=== PATIENT | male | born 1970 | race Caucasian/White ===

== ENCOUNTER 2017-03-25 06:45 | Inpatient (IN) | payer BC ==
[2017-03-24 11:04] VITALS: BMI 44.4
[2017-03-25] MEDS ORDERED: MIDAZOLAM HCL 2 MG/2 ML SINGLE DOSE VIAL ONE (07:43)
[2017-03-25 07:44] LABS: URINE APPEARANCE CLEAR; URINE BILIRUBIN NEGATIVE (NEGATIVE); URINE BLOOD 1+ (NEGATIVE); URINE COLOR LT. YELLOW; URINE GLUCOSE (UA) NEGATIVE (NEGATIVE); URINE KETONE NEGATIVE (NEGATIVE); URINE LEUK ESTERASE NEGATIVE (NEGATIVE); URINE NITRITE NEGATIVE (NEGATIVE); URINE PROTEIN NEGATIVE (NEGATIVE); URINE UROBILINOGEN 0.2 mg/dL (0.2-1.0)
[2017-03-25] MEDS ORDERED: PROPOFOL 20 ML ONE ×2 (07:44)
[2017-03-25] MEDS ORDERED: ROCURONIUM BROMIDE 50 MG/5 ML VIAL ONE (07:44)
[2017-03-25] MEDS ORDERED: SUCCINYLCHOLINE CHLORIDE 200 MG/10 ML VIAL ONE (07:44)
[2017-03-25] MEDS ORDERED: BUPIVACAINE HCL/PF 0.5% (5MG/ML) 10 ML VIAL ONE (08:23)
[2017-03-25] MEDS ORDERED: ceFAZolin SODIUM 1 GM VIAL IVPB ONE (08:35)
[2017-03-25] MEDS ORDERED: LIDOCAINE HCL 2% JELLY (5 ML/TUBE) ONE (08:41)
[2017-03-25] MEDS ORDERED: LIDOCAINE HCL/PF 2% SDV 5ML VIAL ONE (08:41)
[2017-03-25] MEDS ORDERED: ceFAZolin SODIUM 1 GM VIAL ONE (08:41)
[2017-03-25] MEDS ORDERED: BUPIVACAINE HCL/PF 0.5% (5MG/ML) 10 ML VIAL IJ ONE ×2 (09:25)
[2017-03-25] MEDS ORDERED: DEXAMETHASONE SOD PHOSPHATE 4 MG/1 ML VIAL ONE (09:48)
[2017-03-25] MEDS ORDERED: NEOSTIGMINE METHYLSULFATE 0.5 MG/ML - 10 ML MDV ONE (09:48)
[2017-03-25] MEDS ORDERED: KETOROLAC TROMETHAMINE 30 MG/1 ML VIAL ONE (09:48)
[2017-03-25] MEDS ORDERED: ONDANSETRON 4 MG/2 ML VIAL ONE (09:48)
[2017-03-25] MEDS ORDERED: ONDANSETRON 4 MG/2 ML VIAL IVPB PRN (10:19)
[2017-03-25] MEDS ORDERED: LACTATED RINGERS SOLUTION 1,000 ML IV SCH (10:45)
[2017-03-25] MEDS: METOCLOPRAMIDE HCL INJECTION 10 MG/2 ML VIAL IVPB SCH ×3 (11:15→22:37)
[2017-03-25 11:26] LABS: MCH 28.1 pg (25.7-33.7); MCHC 34.4 g/dl (32.0-35.9); MEAN CELL VOLUME 81.8 fl (80-96); MEAN PLT VOLUME 8.8 fl (7.5-11.1); PLATELET COUNT 261 K/MM3 (134-434); WHITE BLOOD COUNT 7.7 K/mm3 (4.0-10.0)
[2017-03-25 11:30] LABS: ALBUMIN 3.5 g/dl (3.4-5.0); ALK PHOS 44 U/L (45-117); ANION GAP 5 (8-16); BILIRUBIN,TOTAL 0.3 mg/dL (0.2-1.0); CALCIUM 8.5 mg/dL (8.5-10.1); CO2 28 mmol/L (21-32); GLUCOSE,RANDOM 95 mg/dL (74-106); SGOT/AST 45 U/L (15-37); SGPT/ALT 72 U/L (12-78); TOT PROT 7.1 g/dl (6.4-8.2)
[2017-03-25] MEDS: SODIUM CHLORIDE 1,000 ML IV SCH ×2 (13:00→21:04)
--- NOTE | 2017-03-25 14:22 | OP ---
DATE OF OPERATION: 03/25/2017 PREOPERATIVE DIAGNOSES: 1. Morbid obesity. 2. Lipoma of right abdominal wall. POSTOPERATIVE DIAGNOSES: 1. Morbid obesity. 2. Lipoma of right abdominal wall. PROCEDURE PERFORMED: 1. Laparoscopic vertical sleeve gastrectomy. 2. Excision of lipoma, right abdominal wall. 3. Diagnostic laparoscopy. OPERATING SURGEON: Ryan Hagen MD CONTROLLER INSTRUCTOR: Ousmane Andersen MD ANESTHESIA: General. EXPECTED BLOOD LOSS: 50 mL DISPOSITION: Patient transferred to recovery room in stable condition. OPERATIVE PROCEDURE: The patient was brought into the operating room and placed on the OR table in the supine position. All precautions were taken initially including padding for the back and the feet, and Venodyne boots were placed on both lower extremities. At that point, the abdomen was prepped and draped in the usual manner. A Veress needle was placed in the left upper quadrant, and a pneumoperitoneum was established. A number 12 bladeless trocar was placed in the left upper quadrant. Through that trocar, laparoscopic camera was placed. Under direct vision, a number 15 bladeless trocar was placed in the midline in a supraumbilical position, followed by a number 5 bladeless trocar in the right upper quadrant and number 5 bladeless trocar below the left costal margin. A Chuck liver retractor was then placed in the epigastrium to retract the left lobe of the liver. The patient was then placed in a 20-degree reverse Trendelenburg position, and the distal stomach was noted. The pylorus was found on distal stomach, and 6 cm would make it proximally from there. Here, on the greater curvature of the stomach, the operating surgeon lifted the stomach toward the anterior abdominal wall as the dental assistant surgeon retracted the gastrocolic ligament inferiorly. The LigaSure device was used to dissect the gastrocolic ligament off the greater curve of stomach. This continued in a superior vertical direction, continuing to dissect the short gastric vessels off the greater curve until the final short gastric vessel between the superior poles of the spleen and the proximal fundus was divided. At this juncture, Anesthesia had a number 40 bougie and advanced it from the upper stomach toward the distal stomach. With the bougie held along the lesser curve, a series of em was performed with the first two being black load em, 6 cm in length along the bougie. This was followed by a series of purple-load staple also along the bougie until the final stapler was fired in the left upper quadrant, and the greater curve was now completely detached from the lesser curve. It should be noted that prior to firing each staple, both the anterior and posterior garvey were checked of the remaining lesser curvature to make sure that they were equal and in the area of the esophagogastric junction, approximately 1 cm of serosa remained on the anterior and posterior surfaces. At this juncture, saline was placed around the staple line. Anesthesia inserted air into the bougie which showed the entire stomach distended to the pylorus. No obstruction and no leaks were noted. At this point, the resected greater curve was removed with a number 15 trocar site and sent off to field as a specimen to Pathology. Under direct vision, the number 15 trocar site was closed in the upper midline to prevent internal hernia and to prevent bleeding. Under direct vision, all trocars were removed, and pneumoperitoneum was released. In the right upper quadrant, from the midline over laterally just below the right costal margin, there was a large subcutaneous fatty tissue significant for a lipoma. This measured approximately 10 cm in transverse diameter and 6 cm vertically. An incision was made extending from the midline laterally below the right costal margin. The incision was carried down through the skin and reaching the subcutaneous tissue. Once the lipoma was noted, initially dissection continued on the superior side where the dissection continued down to the fascia of the right rectus muscle, and here, the lipoma was lifted off the right rectus muscle. This was then extended to both the lateral and medial surfaces until finally the lipoma was lifted up, remaining by a stalk. It was dissected free of all attachments, and the lipoma was sent off the field as a specimen. At this point, all trocar sites received 0.25% Marcaine. The lipoma was closed with 3-0 Vicryl in a subcutaneous fashion, and then, all trocar sites and incisions were closed with 4-0 Biosyn in subcuticular fashion. Dressings were applied. The patient awoke from anesthesia and transferred out of the operating room to the recovery room in stable condition. Lolis [id number]
[2017-03-25] MEDS: ENOXAPARIN NA (PORCINE) 40 MG/0.4 ML DISP.SYRIN SQ SCH (21:03)
[2017-03-25] MEDS: FAMOTIDINE 20 MG/50 ML IVPB 50 ML IVPB SCH (21:03)
[2017-03-25] MEDS: HYDROmorphone HCL CARPU-JECT 1 MG/1 ML DISP.SYRIN IVPB PRN (21:04)
[2017-03-26] MEDS: METOCLOPRAMIDE HCL INJECTION 10 MG/2 ML VIAL IVPB SCH ×3 (04:09→15:53)
[2017-03-26] MEDS: HYDROmorphone HCL CARPU-JECT 1 MG/1 ML DISP.SYRIN IVPB PRN (06:01)
[2017-03-26 08:04] LABS: MCH 27.7 pg (25.7-33.7); MCHC 33.9 g/dl (32.0-35.9); MEAN CELL VOLUME 81.7 fl (80-96); MEAN PLT VOLUME 8.7 fl (7.5-11.1); PLATELET COUNT 256 K/MM3 (134-434); RDW 13.9 % (11.9-15.9); WHITE BLOOD COUNT 10.5 K/mm3 (4.0-10.0)
[2017-03-26 08:36] LABS: ALBUMIN 3.1 g/dl (3.4-5.0); ANION GAP 7 (8-16); CALCIUM 8.2 mg/dL (8.5-10.1); CO2 24 mmol/L (21-32); GLUCOSE,RANDOM 118 mg/dL (74-106)
[2017-03-26 08:41] LABS: ALK PHOS 35 U/L (45-117); BILIRUBIN,TOTAL 0.6 mg/dL (0.2-1.0); CREATININE 0.7 mg/dL (0.7-1.3); SGOT/AST 26 U/L (15-37); SGPT/ALT 55 U/L (12-78); TOT PROT 6.2 g/dl (6.4-8.2)
[2017-03-26] MEDS: FAMOTIDINE 20 MG/50 ML IVPB 50 ML IVPB SCH (10:36)
[2017-03-26] MEDS: SODIUM CHLORIDE 1,000 ML IV SCH (10:36)
[2017-03-26] MEDS: ENOXAPARIN NA (PORCINE) 40 MG/0.4 ML DISP.SYRIN SQ SCH (10:53)
[2017-03-26] MEDS ORDERED: oxyCODONE HCL 5 MG TABLET PO PRN (12:44)
[2017-03-26] MEDS ORDERED: SODIUM CHLORIDE 1,000 ML IV SCH (12:45)
--- NOTE | 2017-03-26 12:58 | PATH ---
Surgical Pathology Report Patient Name: ANNIKA MANLEY [facility]. Rec. #: [id number] /Age/Gender: 1970 (Age: 46) / M Account: [id number] Location: [facility] PEDS/ADOL Taken: 03/25/2017 Received: 03/25/2017 Reported: 03/26/2017 Physicians: Ryan Hagen M.D. Specimen(s) Received A: GREATER CURVATURE OF STOMACH B: LIPOMA RIGHT ABDOMINAL WALL Clinical History Morbid obesity Final Diagnosis A. STOMACH, GREATER CURVATURE, LAPAROSCOPIC VERTICAL SLEEVE GASTRECTOMY: PORTION OF STOMACH WITH MILD CHRONIC GASTRITIS. IMMUNOSTAIN FOR H. PYLORI IS NEGATIVE FOR ORGANISMS B. SOFT TISSUE, RIGHT ABDOMEN WALL, LIPOMA, EXCISION: MATURE BENIGN ADIPOSE TISSUE CONSISTENT WITH LIPOMA. Electronically Signed Gael Guevara M.D. Gross Description A. Received in formalin, labeled "greater curvature of stomach" is a 167 gram, 20.0 x 5.5 x 3.5 cm portion of stomach with a stapled margin of resection. The serosa is begum-isaac with minimal attached fat. The mucosa is begum-pink with normal folds. No mucosal masses are identified. [facility]etics [facility] Chief sections are submitted in one cassette. B. Received in formalin labeled "lipoma right abdominal wall" is a 9.5 x 9.5 x 3.5 cm aggregate of multiple portions of yellow, lobulated adipose tissue. Sectioning reveals homogeneous yellow, smooth fat. No areas of hemorrhage or necrosis are identified. Clinical Genetics Laboratory Chief sections are submitted in 4 cassettes. /03/25/2017 saudi/03/25/2017
[2017-03-26 14:11] VITALS: BP 113/53; PULSE 75; TEMP 97.8
--- NOTE | 2017-03-26 15:08 | PN ---
Progress Note (short form) - Note Progress Note: Anesthesia POD#1 S/P Gastric Sleeve under GA VSS,no N/V ,pain is under control. No complications to anesthesia seen. Harriett Schmitt MD.
== END 2017-03-26 18:30 | disposition home or self-care (01) | DRG 621 ==
LOC: JSAMEDAYSX 06:45 → EDSTATUS 10:00 → J4S 13:23
PROVIDERS: ADMIT Surgery; ATTEND Surgery
PROC: 0JB83ZZ Excision of Abdomen Subcutaneous Tissue and Fascia, Percutaneous Approach (ICD-10-PCS; 2017-03-25)
PROC: 0DB64Z3 Excision of Stomach, Percutaneous Endoscopic Approach, Vertical (ICD-10-PCS; principal; 2017-03-25 08:00)
DX: E66.01 Morbid (severe) obesity due to excess calories (principal); D17.5 Benign lipomatous neoplasm of intra-abdominal organs; Z68.42 Body mass index [BMI] 45.0-49.9, adult
CPT/HCPCS: 36415; 74241-TC; 80053; 81003; 81015; 85027; 86850; 86900; 86901; 88304-TC; 88305-TC; 94010; 94760